=== PATIENT | male | born 1965 | race Caucasian/White ===

== ENCOUNTER 2017-09-01 12:05 | Emergency (ER) | payer OTHER ==
[2017-09-01 12:09] VITALS: BP 146/93; PULSE 90; TEMP 97.6; BMI 33.9
--- NOTE | 2017-09-01 13:17 | PDOC ---
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 Tingling to left hand. Occurred: reports: just prior to arrival Severity: reports: moderate Upper Extremity Pain Location: left: shoulder Method of Injury: reports: twisted Modifying Factors: improves with: cold therapy Extremity Pain Location - Extremity Pain Location Extremity Pain Locations: left: other (left shoulder) Past History - Past Medical History Allergies/Adverse Reactions: Allergies Allergy/AdvReac Type Severity Reaction Status Date / Time celecoxib [From Celebrex] Allergy Rash Verified 09/01/17 12:07 Penicillins Allergy Verified 09/01/17 12:07 Home Medications: Ambulatory Orders Telmisartan/Hydrochlorothiazid [Micardis Hct 80-12.5 mg Tablet] 1 each PO DAILY 05/19/15 Aspirin [Aspirin EC] 81 mg PO DAILY 08/07/15 Naproxen [Naprosyn -] 500 mg PO BID #14 tablet 09/01/17 HTN: Yes - Surgical History Neurologic Surgery: Yes (LAMINECTOMY) - Immunization History Immunization Up to Date: Yes - Suicide/Smoking/Psychosocial Hx Smoking History: Never smoked Have you smoked in the past 12 months: No Number of Cigarettes Smoked Daily: 0 Cigars Per Day: 0 Hx Alcohol Use: No Drug/Substance Use Hx: No Substance Use Type: None Review of Systems - Review of Systems Constitutional: No: Symptoms Reported HEENTM: No: Symptoms Reported Respiratory: No: Symptoms reported Cardiac (ROS): No: Symptoms Reported ABD/GI: No: Symptoms Reported : No: Symptoms Reported Musculoskeletal: Yes: Joint Pain. No: Joint Swelling, Muscle Pain, Muscle Weakness, Joint Stiffness Integumentary: No: Symptoms Reported, Erythema Neurological: Yes: Paresthesia, Tingling. No: Symptoms reported, Tremors, Weakness, Unsteady Gait, Ataxia, Dizziness All Other Systems: Reviewed and Negative *Physical Exam - Vital Signs Last Vital Signs Temp Pulse Resp BP Pulse Ox 97.6 F 90 18 146/93 99 09/01/17 12:07 09/01/17 12:07 09/01/17 12:07 09/01/17 12:07 09/01/17 12:07 - Physical Exam General Appearance: Yes: Appropriately Dressed. No: Apparent Distress Neck: positive: Tender lateral (left lateral). negative: Tender midline Respiratory/Chest: positive: Lungs Clear, Normal Breath Sounds. negative: Respiratory Distress, Accessory Muscle Use Cardiovascular: positive: Regular Rhythm, Regular Rate Musculoskeletal: positive: Decreased Range of Motion (to left shoulder related to pain). negative: Vertebral Tenderness Extremity: positive: Normal Capillary Refill. negative: Normal Inspection, Normal Range of Motion (decreased range of motion unable to abduct arm), Swelling, Erythema, Inflammation Integumentary: positive: Normal Color, Dry. negative: Erythema, Swelling, Ecchymosis, Bruising Neurologic: positive: Alert, Normal Mood/Affect, Normal Response, Motor Strength / ED Treatment Course - RADIOLOGY Radiology Studies Ordered: Category Date Time Status SHOULDER-W/TRANS-LEFT [RAD] Stat Radiology 09/01/17 12:26 Completed Medical Decision Making - Medical Decision Making 09/01/17 13:15 A/P: Patient with left anterior shoulder pain status post injury. Patient sent to x-ray, x-rays negative however patient with decreased mobility to arm. Arm sling placed on, patient will need to follow-up with orthopedics for further evaluation arm sling to stay until further follow-up. Anti-inflammatories for pain. Follow up with occupational medicine if time off. *DC/Admit/Observation/Transfer Diagnosis at time of Disposition: Shoulder injury Qualifiers: Encounter type: initial encounter Laterality: left Qualified Code(s): S49.92XA - Unspecified injury of left shoulder and upper arm, initial encounter; S49.92XA - Unspecified injury of left shoulder and upper arm, initial encounter - Discharge Dispostion Disposition: HOME Condition at time of disposition: Good Admit: No - Prescriptions Prescriptions: Naproxen [Naprosyn -] 500 mg PO BID #14 tablet - Referrals Referrals: Stacie Boudreaux MD [Primary Care Provider] - - Patient Instructions Printed Discharge Instructions: How to Use a Sling Additional Instructions: 1. Please return to the emergency department with any redness, swelling, increased pain, or any other concerns. 2. Keep sling on. 3. Please follow up in the office of Dr. Belcher within a week if pain persists. 4. No weightbearing 5. Ice and elevate when at rest. 6. Motrin for pain Follow up with occupational medicine if time off.
== END 2017-09-01 13:21 | disposition home or self-care (01) ==
LOC: JERFT 12:05 → SUPCPDRO 12:05 → JERFT 13:21
DX: S49.82XA Other specified injuries of left shoulder and upper arm, initial encounter (principal); X50.9XXA Other and unspecified overexertion or strenuous movements or postures, initial encounter; Y93.F2 Activity, caregiving, lifting; Y92.89 Other specified places as the place of occurrence of the external cause; Y99.0 Civilian activity done for income or pay
CPT/HCPCS: 73030-TC-LT; 99281-25

== ENCOUNTER 2018-01-13 11:41 | Day surgery (SDC) | payer OTHER ==
[2018-01-08 13:37] VITALS: BMI 35.2
[2018-01-13] MEDS ORDERED: MIDAZOLAM HCL 2 MG/2 ML SINGLE DOSE VIAL ONE ×2 (13:01→15:09)
[2018-01-13] MEDS ORDERED: DEXAMETHASONE SOD PHOSPHATE/PF 10 MG/ML SDV ONE (13:01)
[2018-01-13] MEDS ORDERED: ROPIVACAINE HCL 0.5% 30ML VIAL ONE (13:02)
[2018-01-13] MEDS ORDERED: ONDANSETRON 4 MG/2 ML VIAL IVPUSH PRN (14:28)
[2018-01-13] MEDS ORDERED: oxyCODONE HCL 5 MG TABLET PO PRN (14:28)
[2018-01-13] MEDS ORDERED: LACTATED RINGERS SOLUTION 1,000 ML IV SCH (14:30)
[2018-01-13] MEDS ORDERED: PROPOFOL 20 ML ONE ×2 (15:24)
[2018-01-13 16:50] VITALS: TEMP 97.7
[2018-01-13 17:54] VITALS: BP 143/80; PULSE 92
--- NOTE | 2018-01-15 08:49 | OP ---
DATE OF OPERATION: 01/13/2018 PREOPERATIVE DIAGNOSIS: Left shoulder internal derangement. POSTOPERATIVE DIAGNOSES: 1. Left shoulder severe impingement with severe subacromial bursitis and anteroinferior subacromial spur. 2. Partial-thickness supraspinatus rotator cuff tear. 3. Diffuse labral fraying and glenohumeral joint synovitis. OPERATIVE PROCEDURE: 1. Left shoulder arthroscopic glenohumeral joint extensive debridement. 2. Debridement of left shoulder partial-thickness rotator cuff tear. 3. Left shoulder arthroscopic subacromial decompression and anteroinferior acromioplasty. SURGEON: Donal Belcher MD SUBSTATION DESIGNER: ALTAGRACIA Bryson ANESTHESIA: Regional. COMPLICATIONS: None. ESTIMATED BLOOD LOSS: Minimal. INDICATION FOR PROCEDURE: The patient is a 52-year-old male with the above finding indicated for operative treatment. Risks, benefits, alternatives were discussed with the patient at length. Proper informed consent was obtained. PROCEDURE: After proper identification of patient, correct operative site, patient was brought to the operating room and placed supine on the operating table, all prominences well padded. Regional anesthesia was given. Patient was placed in the beach chair position. All points of contact were well padded. In-line cervical position was maintained throughout the procedure. Arthroscopy was performed through posterior, lateral, and anterior portals. Glenohumeral joint was observed and found to have mild chondromalacia. The labrum was frayed anteriorly and posteriorly and debrided. Synovitis of the glenohumeral joint was observed and also debrided. Subscapularis tendon was intact. Supraspinatus and infraspinatus were observed and found to have mild fraying in the infraspinatus and a partial-thickness, less than 25%, tear of the anterior aspect of the supraspinatus which was debrided. Biceps tendon was found to be intact and firmly attached to the superior labrum and glenoid. Arthroscope was then introduced in the subacromial space where a severe bursitis was noted. This was debrided with mechanical shaver as well as ArthroWand, and a moderate to large size anteroinferior subacromial spur was noted and acromioplasty was performed. The rotator cuff was observed and found to also have some partial-thickness fraying at the most anterior aspect. Again, this was less than 25%, and the total thickness of the rotator cuff tear anteriorly was less than 50%. Therefore, no repair was performed. Wounds were irrigated and repaired with 4-0 nylon suture. Sterile dressings, ice machine, and sling were placed. Patient was reversed from anesthesia and brought to recovery in stable condition. Pierre Amor, the orthodontic technician assistant, was integral throughout the procedure. Procedure could not have been performed without a skilled operative orthodontic technician assistant. Eduard MONTOYA/[id number]
== END 2018-01-13 17:40 | disposition home or self-care (01) ==
LOC: FASU 11:41
PROVIDERS: ATTEND Orthopaedic Surgery Hand Surgery
PROC: 0RBK4ZZ Excision of Left Shoulder Joint, Percutaneous Endoscopic Approach (ICD-10-PCS; 2018-01-13)
PROC: 0LB24ZZ Excision of Left Shoulder Tendon, Percutaneous Endoscopic Approach (ICD-10-PCS; principal; 2018-01-13 15:39)
PROC: 0RNK4ZZ Release Left Shoulder Joint, Percutaneous Endoscopic Approach (ICD-10-PCS; 2018-01-13 15:39)
DX: M75.42 Impingement syndrome of left shoulder (principal); M75.52 Bursitis of left shoulder; M25.712 Osteophyte, left shoulder; M75.112 Incomplete rotator cuff tear or rupture of left shoulder, not specified as traumatic; M65.812 Other synovitis and tenosynovitis, left shoulder

== ENCOUNTER 2018-06-02 10:12 | Day surgery (SDC) | payer OTHER ==
[2018-05-25 11:15] VITALS: BMI 35.2
[2018-06-02 14:10] VITALS: TEMP 97.5
[2018-06-02 14:49] VITALS: BP 135/90; PULSE 76
--- NOTE | 2018-06-03 20:53 | OP ---
DATE OF OPERATION: 06/02/2018 PREOPERATIVE DIAGNOSIS: Left shoulder adhesive capsulitis. POSTOPERATIVE DIAGNOSIS: Left shoulder adhesive capsulitis. OPERATIVE PROCEDURE: Left shoulder manipulation under anesthesia. SURGEON: Donal Das MD ANESTHESIA: General. COMPLICATIONS: None. ESTIMATED BLOOD LOSS: Minimal. INDICATIONS FOR THE PROCEDURE: The patient is a 53-year-old male with the above finding, indicated for operative treatment. Risks, benefits, and alternatives were discussed with the patient at length. Proper informed consent was obtained. PROCEDURE: After proper identification of the patient and correct operative site, the patient was brought to the operating room and was placed into the operating holding area where deep sedation/general anesthesia was provided by the anesthesiologist. Shoulder was then manipulated. Examination under anesthesia showed forward elevation to 130 degrees, internal rotation to 20 degrees, external rotation to 20 degrees. This was then manipulated gently into full extension and full internal and external rotation. The shoulder was then placed into a sling and the patient was awakened from anesthesia. He tolerated the procedure well. He was already set up for physical therapy sessions and will follow up with me in the next week or two. DONAL DAS M.D. LISETTE/[id number]
== END 2018-06-02 14:25 | disposition home or self-care (01) ==
LOC: FASU 10:12
PROVIDERS: ATTEND Orthopaedic Surgery Hand Surgery
PROC: 0RNKXZZ Release Left Shoulder Joint, External Approach (ICD-10-PCS; principal; 2018-06-02 12:00)
DX: M75.02 Adhesive capsulitis of left shoulder (principal)

== ENCOUNTER 2022-03-21 04:51 | Day surgery (SDC) | payer BC ==
[2022-03-19 14:57] VITALS: BMI 40.7
[2022-03-21 12:01] VITALS: TEMP 98
[2022-03-21 12:26] VITALS: PULSE 70
[2022-03-21 14:39] VITALS: BP 116/77
== END 2022-03-21 12:55 | disposition home or self-care (01) ==
LOC: JASU-ENDO 04:51
PROVIDERS: ATTEND Internal Medicine Gastroenterology
PROC: 0DJD8ZZ Inspection of Lower Intestinal Tract, Via Natural or Artificial Opening Endoscopic (ICD-10-PCS; principal; 2022-03-21 11:30)
DX: Z12.11 Encounter for screening for malignant neoplasm of colon (principal); K64.8 Other hemorrhoids; K57.30 Diverticulosis of large intestine without perforation or abscess without bleeding; Z86.010 Personal history of colon polyps